=== PATIENT | female | born 1980 | race Caucasian/White ===

== ENCOUNTER 2018-08-12 18:34 | Emergency (ER) | payer OTHER ==
--- NOTE | 2018-08-12 18:48 | EDPHY ---
H & P Stated Complaint: Abd pain, n/v,diarrhea;hyperventilating Time Seen by Provider: 08/12/18 18:48 - Personal History LMP (Females 10-55): 15-21 Days Ago Current Tetanus Diphtheria and Acellular Pertussis (TDAP): Yes - Medical/Surgical History Other PMH: factor V Leiden - Social History Smoking Status: Never smoked Constitutional: Initial Vital Signs Temperature (C) 36.4 C 08/12/18 18:38 Heart Rate 68 08/12/18 18:38 Respiratory Rate 24 H 08/12/18 18:38 Blood Pressure 147/92 H 08/12/18 18:38 O2 Sat (%) 100 08/12/18 18:38 O2 Delivery Mode Room Air Allergies/Adverse Reactions: No Known Allergies Allergy (Unverified 08/12/18 18:37) Home Medications: Medication Instructions Recorded Aspirin EC [Aspirin EC 81 mg (*)] 81 mg PO DAILY 08/12/18 Medical Decision Making - Diagnostics Imaging Results: Imaging Impressions Abdomen CT 08/12/18 19:58 Impression: Nothing acute identified. Results discussed with Dr. Morro Carson at 8:28 PM. General information for patients regarding this examination can be found at [email or web address]. If you have questions or comments about this report, please contact me at (hospital) or [phone] (cell). ED Course/Re-evaluation: CHIEF COMPLAINT: Abdominal pain, nausea, vomiting HISTORY OF PRESENT ILLNESS: The patient is 38 y/o female complaining of abdominal pain, nausea, and vomiting. She reports symptoms started last night. She reports she is unable to keep food down and is only vomiting bile. She reports her pain is over the entirety of her middle abdomen. The pain does not worsen or improve with palpation. She has associated diarrhea. She denies any other associated symptoms. REVIEW OF SYSTEMS: A comprehensive 10 system review of systems is otherwise negative aside from elements mentioned in the history of present illness and medical decision making. PHYSICAL EXAM: HR, BP, O2 Sat, RR. Temp noted General Appearance: Alert, well hydrated, appropriate, and non-toxic appearing. Head: Atraumatic without scalp tenderness or obvious injury Eyes: Pupils equal, round, reactive to light and accommodation, EOMI, no trauma , no injection. Ears: Clear bilaterally, no perforation, normal landmarks Nose: Atraumatic, no rhinorrhea, clear. Throat: There is no erythema or exudates, no lesions, normal tonsils, mucus membranes moist. Neck: Supple, 2+ carotid upstroke, nontender, no lymphadenopathy. Cardiovascular: Regular rate and rhythm, no murmurs, rubs, or gallops. Good capillary refill all extremities. Gastrointestinal: Abdomen is soft, nontender, non-distended, no masses, no rebound, no guarding, no peritoneal signs. Musculoskeletal: Normal active ROM of all extremities, atraumatic. Neurological: Alert, appropriate, and interactive. Skin: No rashes, good turgor, no nodules on palpation. Past medical history: Factor V Leiden Past surgical history: Denies Family history: Non-contributory Social history: Mother and daughter at bedside, lives in [place], student DIAGNOSTICS/PROCEDURES/CRITICAL CARE TIME: Study: CT of the abdomen Indication: Pain Results: CT scan of the body parts was obtained. The results of the study are normal. The study was read by the radiologist, Dr. Mackey. I viewed the images myself on the PACS system. DIFFERENTIAL DIAGNOSIS: The differential diagnosis for the patient's abdominal pain included but was not limited to ovarian cyst, pelvic inflammatory disease, ovarian torsion, urinary tract infection, ectopic , cholecystitis, and appendicitis. MEDICAL DECISION MAKING: The patient presents with abdominal pain, nausea, and vomiting. Normal abdomen on exam. She reports the abdominal pain does not improve or worsen with pressure. Plan for CBC, basic metabolic panel, liver function, lipase, and Beta-HCG. 4mg Zofran, 20mg Pepcid, and NS fluids. 20:00 - I reassessed the patient and informed her of the results of her workup, which is so far not concerning. She reports her pain has not improved. Plan for abdominal CT. 20:30 - CT is normal. I feel she is safe to be discharged. She agrees to this course of action. - Data Points Laboratory Results: Laboratory Results 08/12/18 19:00 08/12/18 19:00 08/12/18 08/12/18 08/12/18 19:00 19:00 19:00 WBC 18.58 10^3/uL H 10^3/uL (3.80-9.50) RBC 4.49 10^6/uL 10^6/uL (4.18-5.33) Hgb 16.1 g/dL g/dL (12.6-16.3) Hct 44.2 % % (38.0-47.0) MCV 98.4 fL fL (81.5-99.8) MCH 35.9 pg H pg (27.9-34.1) MCHC 36.4 g/dL g/dL (32.4-36.7) RDW 12.7 % % (11.5-15.2) Plt Count 225 10^3/uL 10^3/uL (150-400) MPV 11.1 fL fL (8.7-11.7) Neut % (Auto) 92.1 % H % (39.3-74.2) Lymph % (Auto) 3.9 % L % (15.0-45.0) [place] % (Auto) 3.2 % L % (4.5-13.0) Eos % (Auto) 0.0 % L % (0.6-7.6) Baso % (Auto) 0.1 % L % (0.3-1.7) Nucleat RBC Rel Count 0.0 % % (0.0-0.2) Absolute Neuts (auto) 17.10 10^3/uL H 10^3/uL (1.70-6.50) Absolute Lymphs (auto) 0.73 10^3/uL L 10^3/uL (1.00-3.00) Absolute Monos (auto) 0.60 10^3/uL 10^3/uL (0.30-0.80) Absolute Eos (auto) 0.00 10^3/uL L 10^3/uL (0.03-0.40) Absolute Basos (auto) 0.02 10^3/uL 10^3/uL (0.02-0.10) Absolute Nucleated RBC 0.00 10^3/uL 10^3/uL (0-0.01) Immature Gran % 0.7 % % (0.0-1.1) Immature Gran # 0.13 10^3/uL H 10^3/uL (0.00-0.10) Sodium 145 mEq/L mEq/L (135-145) Potassium 4.3 mEq/L mEq/L (3.5-5.2) Chloride 110 mEq/L mEq/L (97-110) Carbon Dioxide 21 mEq/l L mEq/l (22-31) Anion Gap 14 mEq/L mEq/L (6-14) BUN 14 mg/dL mg/dL (7-23) Creatinine 0.7 mg/dL mg/dL (0.6-1.0) Estimated GFR > 60 Glucose 131 mg/dL H mg/dL (70-100) Calcium 9.5 mg/dL mg/dL (8.5-10.4) Total Bilirubin 1.2 mg/dL mg/dL (0.1-1.4) Conjugated Bilirubin 0.6 mg/dL H mg/dL (0.0-0.5) Unconjugated Bilirubin 0.6 mg/dL mg/dL (0.0-1.1) AST 51 IU/L H IU/L (14-46) ALT 44 IU/L IU/L (9-52) Alkaline Phosphatase 67 IU/L IU/L (38-126) Total Protein 8.1 g/dL g/dL (6.3-8.2) Albumin 5.1 g/dL H g/dL (3.5-5.0) Lipase 36 IU/L IU/L (23-300) Beta HCG, Qual NEGATIVE Medications Given: Discontinued Medications Hydromorphone HCl (Dilaudid) 1 mg IVP EDNOW ONE Stop: 08/12/18 19:58 Last Admin: 08/12/18 20:03 Dose: 1 mg Sodium Chloride (Ns) 1,000 mls @ 0 mls/hr IV EDNOW ONE; Wide Open PRN Reason: Protocol Stop: 08/12/18 18:54 Last Admin: 08/12/18 19:13 Dose: 1,000 mls Sodium Chloride (Ns) 1,000 mls @ 0 mls/hr IV EDNOW ONE; Wide Open PRN Reason: Protocol Stop: 08/12/18 18:54 Last Admin: 08/12/18 20:04 Dose: 1,000 mls Famotidine/Sodium Chloride (Pepcid 20 Mg (Premix)) 50 mls @ 200 mls/hr IV EDNOW ONE Stop: 08/12/18 19:07 Last Admin: 08/12/18 19:13 Dose: 50 mls Ketorolac Tromethamine (Toradol) 30 mg IVP EDNOW ONE Stop: 08/12/18 19:58 Last Admin: 08/12/18 20:03 Dose: 30 mg Ondansetron HCl (Zofran) 4 mg IVP EDNOW ONE Stop: 08/12/18 18:54 Last Admin: 08/12/18 19:13 Dose: 4 mg Departure - Departure Disposition: Home, Routine, Self-Care Clinical Impression: Gastroenteritis Condition: Good Instructions: Gastritis (ED), Acute Nausea and Vomiting (ED), Abdominal Pain ( ED) Additional Instructions: 1. Please consume clear liquids like chicken broth, gatorade, and gingerale. Introduce bland food such as toast, rice, applesauce, and bananas as tolerated. Introduce other foods as tolerated. 2. Take Zofran as directed as needed for nausea. 2. Return to the Emergency department for any worsening of condition including vomiting blood and bloody stool. Referrals: Bronson Garcia MD [Medical Doctor] - As per Instructions Report Scribed for: Morro Carson Report Scribed by: Jana Willis Date of Report: 08/12/18 Time of Report: 20:21
[2018-08-12] MEDS ORDERED: FAMOTIDINE 20 MG/NACL 50 ML IV ONE (18:53)
[2018-08-12] MEDS ORDERED: ONDANSETRON 4 MG/2 ML VIAL IVP ONE ×2 (18:53→21:47)
[2018-08-12] MEDS ORDERED: NS 1,000 ML IV ONE ×2 (18:53)
[2018-08-12 19:11] LABS: PLATELET COUNT 225 10^3/uL (150-400)
[2018-08-12] MEDS ORDERED: KETOROLAC 30 MG/1 ML SDV IVP ONE (19:57)
[2018-08-12] MEDS ORDERED: HYDROmorphONE/DILAUDID 2 MG/ML INJ IVP ONE (19:57)
[2018-08-12] MEDS ORDERED: ONDANSETRON 4 MG/2 ML VIAL ONE (19:59)
[2018-08-12] MEDS ORDERED: IOPAMIDOL (ISOVUE 370) 100 ML BTL IV ONE (20:04)
[2018-08-12 20:07] VITALS: BP 154/83
[2018-08-12] MEDS ORDERED: ONDANSETRON 4MG PREPACK#2 BTL TAKEHOME ONE (20:34)
[2018-08-12] MEDS ORDERED: HYDROCOD/APAP 5/325 PREPACK#6 BTL TAKEHOME ONE (20:34)
== END 2018-08-12 22:04 | disposition home or self-care (01) ==
DX: K52.9 Noninfective gastroenteritis and colitis, unspecified (principal); E86.9 Volume depletion, unspecified
CPT/HCPCS: 96374; J1170; J1885; J2405; Q9967